=== PATIENT | male | born 1960 | race Caucasian/White ===

== ENCOUNTER 2016-08-19 22:31 | Emergency (ER) | payer OTHER ==
[~2016-08-19] VITALS: Ht 177.8 cm; Wt 165.2 kg
[2016-08-19 22:47] VITALS: BP 143/84
[2016-08-19] MEDS ORDERED: NAPROSYN500 MG PO (23:02)
[2016-08-19] MEDS ORDERED: PREDNISONE20 MG PO (23:02)
[2016-08-19] MEDS ORDERED: FLEXERIL10 MG PO (23:02)
== END 2016-08-19 23:24 | disposition home or self-care (01) ==
LOC: EME 22:31
DX: S39.012A Strain of muscle, fascia and tendon of lower back, initial encounter (principal); X50.1XXA Overexertion from prolonged static or awkward postures, initial encounter; Y99.0 Civilian activity done for income or pay
CPT/HCPCS: 99281; 99284